=== PATIENT | male | born 1960 | race Asian ===

== ENCOUNTER 2018-02-01 11:32 | Day surgery (SDC) | payer OTHER ==
[2018-02-01] MEDS ORDERED: LACTATED RINGERS 1,000 ML IV ONE (11:46)
[2018-02-01] MEDS ORDERED: MIDAZOLAM 2 MG/2 ML VIAL IVP ONE (12:54)
[2018-02-01] MEDS ORDERED: fentaNYL 100 MCG/2 ML VIAL IVP ONE (12:54)
[2018-02-01 14:30] VITALS: BP 120/75
--- NOTE | 2018-02-02 14:45 | PROCEDURE REPORT ---
DATE OF SERVICE: 02/01/2018 Physician: Mamie Glover MD PLEASE VERIFY - DESCRIPTN OF PROCEDURE = UPPER??? PROCEDURE & FINDINGS REFER TO LOWER PROCEDURE PERFORMED: Colonoscopy with polypectomy. ENDOSCOPIST: Mamie Glover MD PRIMARY CARE PHYSICIAN: Jose Coleman MD INDICATIONS: Screening. PREMEDICATION 1. Fentanyl 100 mcg. 2. Versed 6 mg IV titration. TOTAL SEDATION TIME: 23 minutes. DESCRIPTION OF PROCEDURE: After informed consent was obtained, the patient was placed in the left lateral decubitus position. The video upper scope was placed into the oropharynx which the patient helped to swallow to the esophagus. The esophagus, stomach, duodenum were carefully examined. On withdrawal, retroflex view of the GE junction was performed. The scope was removed. Patient tolerated the procedure well. BLOOD LOSS: None. COMPLICATIONS: None. FINDINGS 1. A 6 mm sessile polyp in the transverse colon, cold snared and removed completely and retrieved. 2. A 10 mm semipedunculated sigmoid colon polyp, hot snared and removed completely and retrieved. 3. Otherwise negative colonoscopy to the cecum. Given the large size of the polyp here, he will need followup colonoscopy in 3 years, rather than 5. cc: Jose Coleman MD TD: 02/01/2018 19:41
== END 2018-02-01 11:33 | disposition home or self-care (01) ==
LOC: SDS 11:32
PROVIDERS: ATTEND Internal Medicine
PROC: 0DBL8ZX Excision of Transverse Colon, Via Natural or Artificial Opening Endoscopic, Diagnostic (ICD-10-PCS; 2018-02-01)
PROC: 0DBN8ZX Excision of Sigmoid Colon, Via Natural or Artificial Opening Endoscopic, Diagnostic (ICD-10-PCS; principal; 2018-02-01 13:00)
DX: Z12.11 Encounter for screening for malignant neoplasm of colon (principal); D12.5 Benign neoplasm of sigmoid colon; D12.3 Benign neoplasm of transverse colon
CPT/HCPCS: 45385; J7120

== ENCOUNTER 2018-10-23 12:08 | Emergency (ER) | payer OTHER ==
[2018-10-23 12:55] LABS: BASOPHILS # (AUTO) 0.2 10^3/uL (0.0-0.1); BASOPHILS % (AUTO) 2.3 %; EOSINOPHILS # (AUTO) 0.4 10^3/uL (0.0-0.7); EOSINOPHILS % (AUTO) 5.8 %; HGB - HEMOGLOBIN 13.6 g/dL (14.0-18.0); LYMPHOCYTES # (AUTO) 1.8 10^3/uL (1.5-3.5); LYMPHOCYTES % (AUTO) 24.4 %; MEAN CORPUSCULAR HEMOGLOBIN 21.9 pg (27.0-31.0); MEAN CORPUSCULAR HGB CONC 32.2 g/dL (32.0-36.0); MEAN PLATELET VOLUME 9.2 fL (7.4-11.4); MONOCYTES # (AUTO) 0.6 10^3/uL (0.0-1.0); NEUTROPHILS # (AUTO) 4.4 10^3/uL (1.5-6.6); NEUTROPHILS % (AUTO) 59.5 %; PLT - PLATELET COUNT 288 10^3/uL (130-450); RED BLOOD COUNT 6.22 10^6/uL (4.70-6.10); RED CELL DISTRIBUTION WIDTH 16.3 % (12.0-15.0); WHITE BLOOD COUNT 7.5 x10^3/uL (4.8-10.8)
[2018-10-23 13:09] LABS: ALBUMIN 4.7 g/dL (3.2-5.5); ALBUMIN/GLOBULIN RATIO 1.7 (1.0-2.2); BILIRUBIN,TOTAL 0.6 mg/dL (0.2-1.0); CALCIUM 9.1 mg/dL (8.5-10.3); CREATININE 0.9 mg/dL (0.6-1.2); TOTAL PROTEIN 7.5 g/dL (6.7-8.2)
[2018-10-23 13:11] LABS: PLATELET MORPHOLOGY RARE GIANT PLATELETS (NORMAL)
--- NOTE | 2018-10-23 13:12 | XRAY Report ---
Reason: chest pain Procedure Date: 10/23/2018 Accession Number: [id number] / [id number] Procedure: XR - Chest 2 View X-Ray CPT Code: 28462 FULL RESULT: EXAM: CHEST RADIOGRAPHY EXAM DATE: 10/23/2018 01:01 PM. CLINICAL HISTORY: Chest pain. COMPARISON: None. TECHNIQUE: 2 views. FINDINGS: Lungs/Pleura: No focal opacities evident. No pleural effusion. No pneumothorax. Normal volumes. Mediastinum: Heart and mediastinal contours are unremarkable. Other: None. IMPRESSION: No acute cardiopulmonary abnormality. RADIA
--- NOTE | 2018-10-23 15:38 | ED Physician Documentation ---
PD HPI CHEST PAIN - Stated complaint Stated Complaint: CHEST PX/DIZZY - Chief complaint Chief Complaint: Cardiac - History obtained from History obtained from: Patient - History of Present Illness Timing - onset: How many weeks ago (1) Timing - onset during: Rest Timing - duration: Weeks (1) Timing - details: Gradual onset, Waxing and waning Pain level max: 4 Pain level now: 1 Quality: Pressure, Indigestion Location: Epigastric Radiation: Other (chest) Improved by: Nothing Worsened by: Eating Associated symptoms: Feeling faint / dizzy (states has felt lightheaded). No: Shortness of air, Diaphoresis, Nausea, Vomiting, General Weakness, Palpitations, Cough Similar symptoms before: Diagnosis (GERD, no history of ACS) Recently seen: Not recently seen - Additional information Additional information: Patient is a 58-year-old male who presents to the emergency department with epigastric pain rating to the chest for the past week. Has been on Nexium in the past and does take it occasionally. States feels similar to his prior he artburn. Denies any history of acute coronary syndrome. Does not change with exertion. Review of Systems Constitutional: denies: Fever, Chills Respiratory: denies: Cough GI: denies: Vomiting, Diarrhea Skin: denies: Rash Musculoskeletal: denies: Neck pain, Back pain Neurologic: denies: Headache PD PAST MEDICAL HISTORY - Past Medical History Cardiovascular: Hypertension Respiratory: Sleep apnea, CPAP use, Other Endocrine/Autoimmune: None GI: None : None HEENT: None Musculoskeletal: None, Osteoarthritis Derm: Other - Present Medications Home Medications: Ambulatory Orders Medication Instructions Recorded Confirmed Atorvastatin [Lipitor] 10 mg ORAL DAILY 01/31/18 01/31/18 Lisinopril 10 mg ORAL DAILY 01/31/18 01/31/18 Multivitamin [Multiple Vitamins] 1 tab ORAL DAILY MDD 1 01/31/18 01/31/18 Tiotropium Arnold [Spiriva] 1 puffs INH PRN PRN 01/31/18 01/31/18 Triamcinolone 0.5% Cream [Kenalog 0.5 units TOP PRN PRN 01/31/18 01/31/18 0.5% Cream] Cetirizine [ZyrTEC] 10 mg PO DAILY #30 tablet 10/23/18 Famotidine [Pepcid] 20 mg PO BID #60 tablet 10/23/18 - Allergies Allergies/Adverse Reactions: Allergies Allergy/AdvReac Type Severity Reaction Status Date / Time No Known Drug Allergies Allergy Verified 10/23/18 12:19 PD ED PE NORMAL - Vitals Vital signs reviewed: Yes - General General: Alert and oriented X 3, No acute distress, Well developed/nourished - HEENT HEENT: PERRL, Moist mucous membranes - Neck Neck: Supple, no meningeal sign - Cardiac Cardiac: RRR, Strong equal pulses - Respiratory Respiratory: No respiratory distress, Clear bilaterally - Abdomen Abdomen: Soft, Non tender, Non distended - Derm Derm: Warm and dry - Extremities Extremities: No edema, No calf tenderness / cord - Neuro Neuro: Alert and oriented X 3 - Psych Psych: Normal mood, Normal affect Results - Vitals Vitals: Oxygen O2 Source Room air - EKG (time done) 1213 Rate: Rate (enter#) (73) Rhythm: NSR [place]: Normal Intervals: Normal NC QRS: Normal Ischemia: Normal ST segments - Labs Labs: Laboratory Tests 10/23/18 10/23/18 10/23/18 12:45 12:45 12:45 WBC 7.5 RBC 6.22 H Hgb 13.6 L Hct 42.3 MCV 68.0 L MCH 21.9 L MCHC 32.2 RDW 16.3 H Plt Count 288 MPV 9.2 Neut # (Auto) 4.4 Lymph # (Auto) 1.8 [place] # (Auto) 0.6 Eos # (Auto) 0.4 Baso # (Auto) 0.2 H Absolute Nucleated RBC 0.00 Nucleated RBC % 0.0 Manual Slide Review Indicated Platelet Morphology RARE GIANT PLATELETS Sodium 137 Potassium 3.6 Chloride 104 Carbon Dioxide 26 Anion Gap 7.0 BUN 13 Creatinine 0.9 Estimated GFR (MDRD) 87 L Glucose 113 H Calcium 9.1 Total Bilirubin 0.6 AST 29 ALT 29 Alkaline Phosphatase 53 Troponin I < 0.04 Total Protein 7.5 Albumin 4.7 Globulin 2.8 Albumin/Globulin Ratio 1.7 Lipase 39 - Rads (name of study) cxr Radiology: Prelim report reviewed, EMP read contemporaneously, See rad report (no acute disease) PD MEDICAL DECISION MAKING - ED course Complexity details: reviewed results, re-evaluated patient, considered differential (No ST elevation RI, no aortic dissection, no PE, no tension pneumothorax, no aortic aneurysm), d/w patient ED course: Patient is a 58-year-old male who presents to the emergency department what sounds like gastroesophageal reflux disease, symptoms are not consistent with acute coronary syndrome. Negative troponin after a week of symptoms. Normal EKG. Normal chest x-ray. No evidence of pulmonary embolus. We will have him follow-up with his doctor for further care. Patient counseled regarding signs and symptoms for which I believe and urgent re-evaluation would be necessary. Patient with good understanding of and agreement to plan and is comfortable going home at this time This document was made in part using voice recognition software. While efforts are made to proofread this document, sound alike and grammatical errors may occur. Departure - Departure Disposition: 01 Home, Self Care Clinical Impression: Rhinorrhea Chest pain Qualifiers: Chest pain type: unspecified Qualified Code(s): R07.9 - Chest pain, unspecified Condition: Good Instructions: ED Chest Pain Atypical Unkn Cause, ED GERD Follow-Up: your,doctor in 1 week [Other] Prescriptions: Cetirizine [ZyrTEC] 10 mg PO DAILY #30 tablet Famotidine [Pepcid] 20 mg PO BID #60 tablet Comments: Follow-up with your doctor for further care. You should have an endoscopy to evaluate your gastroesophageal reflux disease. Discharge Date/Time: 10/23/18 16:00
[2018-10-23 15:46] VITALS: BP 142/94
== END 2018-10-23 16:00 | disposition home or self-care (01) ==
LOC: ED 12:08
DX: R07.9 Chest pain, unspecified (principal); J34.89 Other specified disorders of nose and nasal sinuses; I10 Essential (primary) hypertension
CPT/HCPCS: 36415; 71046; 80053; 83690; 84484; 85025; 93005; 99283

== ENCOUNTER 2019-04-12 10:48 | Outpatient (CLI) | payer OTHER ==
[2019-04-12] MEDS ORDERED: AMINOPHYLLINE 250 MG/10 ML VIAL ONE (12:44)
[2019-04-12] MEDS ORDERED: REGADENOSON 0.4 MG/5 ML SYRINGE IVP ONE ×2 (12:44→14:50)
--- NOTE | 2019-04-12 16:02 | CARDIAC PROCEDURE NOTE ---
DATE OF SERVICE: 04/12/2019 Physician: Saundra Black MD, [facility] INDICATION: Shortness of breath, previous treadmill stress test stopped because of excessive hypertension. CARDIAC RISK FACTORS: Male gender, hypertension, elevated cholesterol. PROCEDURE: After signing informed consent, the patient underwent a Lexiscan pharmaceutical stress test with nuclear myocardial perfusion imaging. RESTING HEART RATE: 64. PEAK HEART RATE: 85. RESTING BLOOD PRESSURE: 121/80. PEAK BLOOD PRESSURE: 141/81. Lexiscan was infused per protocol. The patient had a headache and chest heaviness, graded at 4/10, which subsided spontaneously in 3 minutes. He had mild shortness of breath. Oxygen saturation was 94-98% throughout the entire test on room air. RESTING EKG: Normal sinus rhythm, LVH voltage, early repolarization. EKG AT PEAK: No new ST segment or T-wave changes. SUMMARY 1. Abnormal resting EKG. 2. No new ischemic changes by EKG criteria on this pharmaceutical stress test. 3. Nuclear images reported separately. cc: MAYELA Tellez TD: 04/12/2019 15:25 MTDD
--- NOTE | 2019-04-13 12:15 | Nuclear Medicine Report ---
Reason: SOB, LEDEZMA Procedure Date: 04/12/2019 Accession Number: [id number] / [id number] Procedure: NM - Myocardial Perfusion STR/RST CPT Code: FULL RESULT: EXAM: SINGLE-ISOTOPE EXERCISE STRESS TEST. SINGLE-ISOTOPE AND ONE-DAY REST/STRESS MYOCARDIAL PERFUSION SCANS WITH TOMOGRAPHIC IMAGING, QUANTITATIVE ANALYSIS, WALL MOTION ANALYSIS AND CALCULATION OF EJECTION FRACTION. EXAM DATE: 04/12/2019 03:43 PM. CLINICAL HISTORY: SOB, LEDEZMA. COMPARISON: None. TECHNIQUE: A rest myocardial perfusion scan was done with tomography after the intravenous administration of 10.1 mCi Tc-99m sestamibi. After an appropriate delay, a treadmill exercise stress was performed according to department protocol. The patient exercised for 0 minutes and 44 seconds. The maximum heart rate was 85 bpm, which was 52% of the maximum predicted heart rate of 162 bpm. At approximately peak heart rate, 43.6 mCi of Tc-99m sestamibi was injected for stress myocardial perfusion scan. Motion correction was applied when appropriate. Gated tomographic images were obtained for wall motion analysis and computation of left ventricular ejection fraction. FINDINGS: Perfusion images: Left ventricular chamber size appears normal at rest and unchanged at stress. No convincing fixed perfusion deficits. Probable inferior wall diaphragmatic attenuation artifact. No convincing reversible perfusion deficits. SSS 6, SRS 6, SDS 0. Gated images: No convincing focal wall motion abnormality. Calculated left ventricular EDV 79 mL, ESV 15 mL. The left ventricular ejection fraction is estimated at 81% (normal IMPRESSION: 1. No convincing reversible perfusion deficits to indicate stress-induced ischemia. 2. No convincing fixed perfusion deficits. 3. Left ventricular ejection fraction of 81% (normal Please correlate findings with stress ECG tracings and procedure notes. RADIA ADDENDUM: 04/13/19 13:09 Additional IMPRESSION: Submaximal exercise response.
== END 2019-04-12 10:49 | disposition home or self-care (01) ==
LOC: DI 10:48
PROVIDERS: ATTEND Nurse Practitioner Family
DX: R07.89 Other chest pain (principal); R94.31 Abnormal electrocardiogram [ECG] [EKG]; I10 Essential (primary) hypertension; E78.00 Pure hypercholesterolemia, unspecified
CPT/HCPCS: 78452; 93017; A9500; J2785

== ENCOUNTER 2020-02-05 15:18 | Outpatient (CLI) | payer OTHER ==
--- NOTE | 2020-02-05 16:55 | SLEEP CARE CONSULTATION ---
Information from patient questionnaire entered by Neyda Tolentino. I have reviewed and concur with the information entered by Neyda Tolentino. This document represents the service I personally performed and the decisions made by me, Jus Griffin MD, [facility]. History of Present Illness Reason for Visit: New patient Chief Complaint: reports: Insomnia, Unrefreshed sleep, Snoring, Excessive daytime sleepiness, Observed pauses in breathing, Other (Irritable) Duration of Symptoms: 10 years Usual bedtime: 9 pm Time it takes to fall asleep: 1-2 hours Snores at night: Yes Observed to quit breathing while asleep: Yes Sleeps alone due to snoring: Yes Number of times waking at night: 2 Reasons for waking at night: reports: Choking, Snoring Toss, Turn, or Twitch while sleeping: Yes Usually gets out of bed at: 5:15 am Feels refreshed in the morning: No Morning headache: Yes Sleepy or fatigued during the day: Yes Ever fallen asleep while driving: Yes Takes day naps: Yes Prior sleep studies: Yes Year and Where: 2009 Additional HPI information: I had the pleasure of seeing Mr. Aparicio today regarding the possibility of him having a sleep disorder. As you know, he is a 59 year old gentleman who complains of irritability. He had a sleep study at [facility] about 10 years ago. He used a CPAP for a short while and lost the device. He wore a full face mask. [employer] was his durable medical supplier. The patient tells me that he normally goes to bed around 9 pm, and it takes him approximately 1 - 2 hours to fall asleep. He has been told that he snores loudly and irregularly at night. He has also been observed to stop breathing in his sleep. His has to sleep in a separate room. He can recall waking up on the average of 2 times during the night. Most of the time he wakes up because of his own snoring, choking, and having to gasp for air. There is a lot of tossing and turning in his sleep. The patient has somniloquy (sleep talking) but not somnambulism (sleep walking). In the morning he usually gets up out of the bed around 5:15 a.m. not feeling refreshed nor rested. He usually has morning headache. During the day he complains of feeling sleepy and fatigued. His score on [place] Sleepiness Scale is 20 out of 24. He has fallen asleep while driving and has gone out of the juan c. He reports having impaired concentration during the day. - Parasomnia Symptoms Ever been unable to move upon waking from sleep: Yes Ever acted out dreams in sleep: Yes Bothered by creepy, crawly, restless sensations in legs: Yes Subjective Initial [place] Sleepiness Scale score: 20 Past Medical History Past Medical History: reports: Hypertension, Anxiety, Impotence, Depression, Mood disorder, GERD Social History The patient's occupation is a CONTRACTOR. Patient is and lives in [place]. Have you smoked in the past 12 months: No Quit date: 2007 Alcohol use: Yes Alcohol amount and frequency: 1 glass of wine a week Caffeine use: Yes Caffeine amount and frequency: 2 cups a day Family History Family history of sleep disordered breathing: Yes Allergies and Home Medications Drug allergies reviewed: Yes (NKDA) Home medication list reviewed: Yes (lisinopril, famotidine, Zyrtec, Lipitor, and vitamins) Review of Systems Weight loss over past 5 years: 8 Cardiovascular: reports: high blood pressure Respiratory: reports: shortness of breath Gastrointestinal: reports: other (GERD) Urinary: denies: incontinence, frequency, urgency, impotence, other Neurological: denies: headaches, seizure, head trauma, disorientation, speech dysfunction, gait or balance problems, fainting or unconsciousness, other Psychiatric: reports: anxiety, mood disorder Ear/Nose/Throat: denies: nasal congestion, sinus problems, nose bleeds, dry mouth/throat, hoarseness, injury to nose, tonsillectomy, wisdom teeth removed, other Endocrine: denies: thyroid disease, history of goiter, sluggishness, too hot or cold, excessive thirst, increased appetite, increased urination, unexplained weakness, other Musculoskeletal: denies: joint pain, neck pain, back pain, joint swelling, muscle pain or cramping, mobility problems, other Immunologic: denies: sneezing, rash, itching, allergies to food or environment, other Physical Exam Height: 5 ft 8 in Weight: 180 lb (Physical exam was deferred due to the Covid-19 epidemic) Body Mass Index: 27.3 BMI Classification: Overweight Impression and Plan IMPRESSION: 1. Obstructive Sleep Apnea-Hypopnea Syndrome, as suggested by history of loud and irregular snoring, observed cessation of breath while asleep, frequent awakenings during the night, unrefreshed sleep, cognitive impairment, and daytime hypersomnolence. Pathophysiology of sleep-disordered breathing was discussed. I recommend proceeding to polysomnography to confirm the diagnosis and to assess severity. If he has significant sleep disordered breathing, a manual CPAP titration study will also be performed to find the optimal treatment pressure. I informed the patient of what the sleep studies involve and after some discussion, he agreed to proceed. Plan: 1. Schedule an in-laboratory polysomnography + manual CPAP titration study 2. Avoid long distance driving or when feeling sleepy. 3. Avoid alcohol, sedative and muscle relaxant around bedtime. 4. Attempt to lose weight. 5. Return in 1 to 2 weeks after the study to discuss results and initiate therapy. I spent 100% of this visit face to face with the patient with greater than 50% of this was spent time counseling the patient and coordination of care.
== END 2020-02-05 15:19 | disposition home or self-care (01) ==
LOC: SC 15:18
PROVIDERS: ATTEND Internal Medicine Pulmonary Disease
DX: G47.10 Hypersomnia, unspecified (principal); R06.83 Snoring; R06.81 Apnea, not elsewhere classified; G47.8 Other sleep disorders; R41.89 Other symptoms and signs involving cognitive functions and awareness; E66.3 Overweight; Z68.27 Body mass index [BMI] 27.0-27.9, adult
CPT/HCPCS: 99203; 99212

== ENCOUNTER 2020-08-23 19:24 | Outpatient (CLI) | payer OTHER | END 2020-08-23 19:25 | disposition home or self-care (01) | LOC: SC 19:24 | PROVIDERS: ATTEND Nurse Practitioner Family | DX: G47.10 Hypersomnia, unspecified (principal); G47.8 Other sleep disorders; R06.83 Snoring; R06.81 Apnea, not elsewhere classified; I10 Essential (primary) hypertension; E66.3 Overweight; Z68.27 Body mass index [BMI] 27.0-27.9, adult | CPT/HCPCS: 95810 ==

== ENCOUNTER 2020-08-29 08:12 | Outpatient (CLI) | payer OTHER ==
--- NOTE | 2020-08-29 09:10 | SLEEP CARE CONSULTATION ---
Information from patient questionnaire entered by Neyda Tolentino. I have reviewed and concur with the information entered by Neyda Tolentino. This document represents the service I personally performed and the decisions made by , Aline Palacios ARNP. History of Present Illness Service Date and Time: 08/29/2020811 Initial [place] Sleepiness Scale score: 20 (in 2020) Current [place] Sleepiness Scale score: 20 Additional HPI information: FEMI WARD returns for follow up and results of the recently performed polysomnography. The patient was informed of the following findings: Patient had no significant sleep disordered breathing with an average AHI of 0.7 and a new oxygen saturation of 92%. I explained the pathophysiology behind obstructive sleep apnea. Patient does not have sleep apnea and was advised how weight gain could increase the risk of developing sleep apnea in the future. I strongly encouraged the patient to lose weight. Patient has loud snoring. Snoring can be reduced by weight loss. Weight loss is best achieved with diet consult. Patient instructed to contact PCP for referral. Snoring can also be treated with an oral appliance from a dentist. Advised to check insurance coverage. In addition, an ENT evaluation can be do to see if other treatment is indicated. Patient counseled not drink alcohol less than 4 hours before bedtime as it can increase snoring and apnea. Patient was cautioned about risks of drowsy driving until sleepiness symptoms resolve. Sleep Study - Results Type of Sleep Study: Polysomnography Prior sleep studies: Yes Year and Where: 2009 Polysomnography/Home Sleep Study results: IMPRESSION: The quality of the study is good. The patient had slightly reduced sleep efficiency due to a prolonged awakening in the middle of the night. The sleep architecture was nor mal. Respiratory monitoring showed no significant sleep disordered breathing (AHI = 0.7) or hypoxia (new oxygen saturation of 92%). The patient slept almost exclusively in non-supine positions (supine AHI = 0.0; non- supine = 0.76). Snore was loud in intensity. There was no significant periodic leg movement of sleep. Cardiac rhythm was normal sinus rhythm without significant arrhythmia. No abnormal behavior (parasomnia) observed during the night. Allergies and Home Medications Known drug allergies: No Home medication list reviewed: Yes (no changes) Review of Systems Review of systems same as previous: Yes (no changes) Physical Exam Heart Rate: 77 O2 Saturation: 98 Height: 5 ft 8 in Weight: 193 lb (with steel toe boots on) Body Mass Index: 29.3 BMI Classification: Overweight Impression and Plan 1. Obstructive Sleep Apnea-Hypopnea Syndrome, as previously diagnosed. Patient continues to have a loud and irregular snoring, observed cessation of breath while asleep, frequent awakening during the night, unrefreshed sleep, and excessive daytime sleepiness. Patient previously diagnosed with severe sleep apnea. His current sleep study does not show significant disordered breathing but he slept almost exclusively on non-supine. He states he could not sleep on his back because the bed was not comfortable. He normally sleeps on his sides. He has an old machine that he has used for some years and just would like to get a new mask. He had not been using the CPAP for at least 6 months and states that he normally only uses it when he is very tired or his tells him he is snor ing. He would like to replace the old machine and get new supplies to use CPAP therapy. Patient states that he has lost 5-10 pounds in the last 6 months. His Huntley was 20 again today. I think we should repeat the study, do a HST where it would be more comfortable and I instructed the patient to sleep mainly on his back so we may determine if his sleep apnea is primarily supine. He voiced understanding and agreement with plan. * Schedule polysomnography +- manual CPAP titration study and return in 1-2 weeks after the study to discuss result and initiate therapy. * Avoid long distance driving or driving when feeling sleepy. * Avoid alcohol, sedative and muscle relaxant around bedtime. * Attempt to lose weight. * Review instructions provided by trained office staff on how to prepare for the sleep study. Counseling Topics: Sleeping position, Weight loss health impact Visit Type: In Office Time Spent with Patient (minutes): 20 Provider Statement: I spent 100% of the Face to Face Visit with the patient with greater than 50% spent counseling the patient and coordination of care.
== END 2020-08-29 08:13 | disposition home or self-care (01) ==
LOC: SC 08:12
PROVIDERS: ATTEND Nurse Practitioner Family
DX: G47.33 Obstructive sleep apnea (adult) (pediatric) (principal); E66.3 Overweight; Z68.29 Body mass index [BMI] 29.0-29.9, adult
CPT/HCPCS: 99212; 99213

== ENCOUNTER → 2020-09-14 | Outpatient (CLI) | payer OTHER | LOC: SC 09-12 10:08 | PROVIDERS: ATTEND Nurse Practitioner Family | DX: G47.33 Obstructive sleep apnea (adult) (pediatric) (principal); R09.02 Hypoxemia | CPT/HCPCS: 95806 ==

== ENCOUNTER 2020-09-29 16:37 | Outpatient (CLI) | payer OTHER ==
--- NOTE | 2020-09-29 17:04 | SLEEP CARE CONSULTATION ---
Information from patient questionnaire entered by Dov Haider. I have reviewed and concur with the information entered by Dov Haider. This document represents the service I personally performed and the decisions made by me, Aline Palacios ARNP. History of Present Illness Service Date and Time: 09/29/2020 163 Initial [place] Sleepiness Scale score: 20 (in 2020) Current [place] Sleepiness Scale score: 17 Additional HPI information: FEMI WARD returns for follow up and results of the recently performed home sleep study. He was shown to have mild obstructive sleep apnea with an average AHI of 8.1 and a new oxygen saturation of 84%. I reviewed the pathophysiology behind obstructive sleep apnea. We then spent quite a bit of time discussing different treatment options. For mild obstructive sleep apnea, surgery and oral appliance are alternatives to nasal CPAP therapy but in moderate or severe cases, nasal CPAP is the most effective and reliable treatment. Because apnea is primarily in supine position, then positional management therapy could be effective. Methods discussed such as positioning with pillows, using a T-shirt with tennis balls in the back, and shown commercial products that have a pillow format on back to prevent supine sleep. I reviewed the impact of weight changes on sleep apnea and strongly recommended losing weight. After some discussion, the patient opted to go with the nasal CPAP therapy. Nasal autoCPAP set at 4-15 cmH20 will be ordered with rationale explained. A manual titration study will be ordered if unable to find optimal pressure with office adjustments. I explained how CPAP machine works with sample devices Respironics Dreamstation and ResMed [id number] and what to expect when using the machine. Using CPAP every night in order to get used to it was emphasized. Patient advised to put CPAP mask on before getting into bed so as not to fall asleep without CPAP. He has used a CPAP in the past and is comfortable using it. Patient does not drink alcohol very often. Patient was cautioned about risks of drowsy driving until sleepiness symptoms resolve. Sleep Study - Results Type of Sleep Study: Home sleep study Prior sleep studies: Yes Year and Where: 2009 [facility]/Home Sleep Study results: Physician Impression: The quality of the study is fair due to partial loss of airflow signal.. The length of the study is adequate (> 240 minutes). Please also see the tabulated and graphic data. 1. Obstructive Sleep Apnea-Hypopnea (ICD-10 G47.33), mild, with an AHI of 8.1/hr and new SaO2 of 84%. During the study, the patient had 22 apneas (22 obstructive, 0 central, 0 mixed) and 24 hypopneas. The longest episode lasted 48.5 seconds. The respiratory events occurred almost exclusively during supine sleep (supine AHI was 21.3 and non-supine, 1.08). 2. Hypoxemia (ICD-10 R09.02), mild, with the lowest oxygen saturation of 84 % and 2.3 minutes with SaO2 under 90%. Baseline oxygen saturation was normal (Average oxygen saturation was 94%). Allergies and Home Medications Drug allergies reviewed: Yes (NKDA) Home medication list reviewed: Yes (no changes) Review of Systems Review of systems same as previous: Yes (no changes) Physical Exam Heart Rate: 68 O2 Saturation: 98 Height: 5 ft 8 in Weight: 191 lb Body Mass Index: 29.0 BMI Classification: Overweight Impression and Plan 1. Obstructive Sleep Apnea-Hypopnea Syndrome, mild, with lowest oxygen saturation of 8.1. Obviously this is the cause of the patients symptoms of unrefreshed sleep, and excessive daytime sleepiness. Positive pressure therapy could benefit his hypertension, COPD, anxiety and depression. As mentioned above, the patient will be started on nasal autoCPAP therapy with pressure set at 4-15 cmH2O. Compliance guidelines also reviewed. A copy of compliance guidelines will be given for reference at check out. Because the apnea is more severe supine, I instructed to avoid sleeping supine using pillow positioning until able to start CPAP use. * Nasal auto CPAP therapy, pressure at 4-15 cm H2O. * Attempt to lose weight. * Avoid alcohol consumption near bedtime. * Avoid supine sleep until using CPAP. * The patient is again cautioned about driving until sleepiness completely resolves. * Return one month after CPAP obtained. I will assess response to therapy and compliance at that time. Counseling Topics: Weight loss health impact Visit Type: In Office Time Spent with Patient (minutes): 16 Provider Statement: I spent 100% of the Face to Face Visit with the patient with greater than 50% spent counseling the patient and coordination of care.
== END 2020-09-29 16:38 | disposition home or self-care (01) ==
LOC: SC 16:37
PROVIDERS: ATTEND Nurse Practitioner Family
DX: G47.33 Obstructive sleep apnea (adult) (pediatric) (principal); E66.3 Overweight; Z68.29 Body mass index [BMI] 29.0-29.9, adult
CPT/HCPCS: 99212